=== PATIENT | male | born 1935 | race Caucasian/White ===

== ENCOUNTER → 2019-03-29 | Outpatient (CLI) | payer OTHER | END | disposition home or self-care (01) | LOC: NUCLEAR 15:08 | DX: I20.9 Angina pectoris, unspecified (principal) ==

== ENCOUNTER → 2019-07-30 16:33 | Outpatient (CLI) | payer OTHER | END | disposition home or self-care (01) | LOC: RAD 16:33 → LAB 16:33 | DX: M15.0 Primary generalized (osteo)arthritis (principal) ==

== ENCOUNTER 2021-06-19 07:01 | Outpatient (CLI) | payer OTHER | END 2021-06-19 07:06 | disposition home or self-care (01) | LOC: NUCLEAR 07:01 | PROVIDERS: ATTEND Internal Medicine Cardiovascular Disease | DX: R07.89 Other chest pain (principal) | CPT/HCPCS: 78452; 93017; A9500 ×2 ==

== ENCOUNTER 2021-10-27 09:16 | Outpatient (CLI) | payer OTHER | END 2021-10-27 09:18 | disposition home or self-care (01) | LOC: RAD 09:16 | PROVIDERS: ATTEND Internal Medicine Cardiovascular Disease | DX: M25.561 Pain in right knee (principal); M21.611 Bunion of right foot; M17.11 Unilateral primary osteoarthritis, right knee; G93.89 Other specified disorders of brain; R45.89 Other symptoms and signs involving emotional state | CPT/HCPCS: 70544; 70551 ==

== ENCOUNTER 2021-10-27 10:09 | Outpatient (CLI) | payer OTHER | END 2021-10-27 10:13 | disposition home or self-care (01) | LOC: NUCLEAR 10:09 | PROVIDERS: ATTEND Internal Medicine Cardiovascular Disease | DX: R55 Syncope and collapse (principal); M10.9 Gout, unspecified ==

== ENCOUNTER 2021-11-09 11:07 | Outpatient (CLI) | payer OTHER | END 2021-11-09 11:08 | disposition home or self-care (01) | LOC: NUCLEAR 11:07 | PROVIDERS: ATTEND Internal Medicine Cardiovascular Disease | DX: R55 Syncope and collapse (principal) ==

== ENCOUNTER → 2022-11-10 | Outpatient (CLI) | payer OTHER | END | disposition home or self-care (01) | LOC: RAD 15:15 | PROVIDERS: ATTEND Internal Medicine Pulmonary Disease | DX: J45.31 Mild persistent asthma with (acute) exacerbation (principal) ==

== ENCOUNTER 2023-07-11 13:13 | Outpatient (CLI) | payer OTHER | END 2023-07-11 13:16 | disposition home or self-care (01) | LOC: NUCLEAR 13:13 | PROVIDERS: ATTEND Internal Medicine Infectious Disease | DX: I80.8 Phlebitis and thrombophlebitis of other sites (principal); I80.9 Phlebitis and thrombophlebitis of unspecified site ==

== ENCOUNTER 2024-02-13 10:07 | Outpatient (CLI) | payer OTHER | END 2024-02-13 10:09 | disposition home or self-care (01) | LOC: NUCLEAR 10:07 | PROVIDERS: ATTEND Internal Medicine Cardiovascular Disease | DX: I47.10 Supraventricular tachycardia, unspecified (principal) ==